=== PATIENT | male | born 1970 | race Caucasian/White ===

== ENCOUNTER 2016-05-08 05:36 | Outpatient (CLI) | payer OTHER ==
[~2016-05-08] VITALS: Ht 182.9 cm; Wt 106.1 kg
== END 2016-05-08 14:26 ==
LOC: PREOP 05:36
PROVIDERS: ATTEND Surgery
DX: Z01.818 Encounter for other preprocedural examination (principal); K21.9 Gastro-esophageal reflux disease without esophagitis; R19.7 Diarrhea, unspecified

== ENCOUNTER 2016-05-12 07:55 | Day surgery (SDC) | payer OTHER ==
[~2016-05-12] VITALS: Ht 182.9 cm; Wt 106.1 kg
--- OUTSIDE RECORDS SUMMARY | 2016-05-12 07:59 | XMS REPORT | Continuity of Care Document ---
Author Author [facility] Organization [facility] Address Unknown Phone Unavailable Support Name Relationship Address Phone MANDO UMANA MD Caregiver [address] [facility] [place] [address] Insurance Providers Payer Name Policy Number Subscriber Name Relationship [facility] [id number] JenniferLauren hoang 01 Advance Directives Directive Response Recorded Date/Time Advance Directives No 05/08/16 2:21pm Resuscitation Status Full Code 05/08/16 2:21pm Problems No problem information available. Medications No known medications. Social History Social History Problem Response Recorded Date/Time Alcohol Use Regular Use 05/08/2016 2:21pm Recreational Drug Use No 05/08/2016 2:21pm Recent Foreign Travel No 05/08/2016 2:24pm Recent Infectious Disease Exposure No 05/08/2016 2:24pm Smoking Status Never a Smoker 05/08/2016 2:21pm Recent Hopitalizations No 05/08/2016 2:21pm Query Response Start Date Stop Date Smoking Status Never a Smoker Hospital Discharge Instructions No hospital discharge instructions. Plan of Care Discharge Date 05/08/16 2:26pm Prescriptions See Medication Section Functional Status No functional status results. Allergies, Adverse Reactions, Alerts No known allergies. Immunizations No immunization records. Vital Signs Acute Vital Signs Vital Response Date/Time Height (Feet) 6 feet 05/08/2016 2:20pm Height (Inches) 0.00 inches 05/08/2016 2:20pm Height (Calculated Centimeters) 182.399034 cm 05/08/2016 2:20pm Weight (Pounds) 234 pounds 05/08/2016 2:20pm Weight (Ounces) 0.0 oz 05/08/2016 2:20pm Weight (Calculated Grams) 258859.62 gm 05/08/2016 2:20pm Weight (Calculated Kilograms) 106.574228 kilograms 05/08/2016 2:20pm Calculated BMI 31.7 05/08/2016 2:20pm Results No known relevant diagnostic tests, laboratory data and/or discharge summary. Procedures No known history of procedures. Encounters Encounter Location Arrival/Admit Date Discharge/Depart Date Attending Provider Registered Clinic [facility] 05/08/16 5:36am MANDO UMANA MD
--- OUTSIDE RECORDS SUMMARY | 2016-05-12 07:59 | XMS REPORT | Continuity of Care Document ---
Author Author [facility] Organization [facility] Address Unknown Phone Unavailable Support Name Relationship Address Phone MANDO UMANA MD Caregiver [address] [facility] [place] [address] [address] Insurance Providers Payer Name Policy Number Subscriber Name Relationship [facility] [place] [id number] JenniferLauren hoang 01 Advance Directives Directive Response [...] 0.00 inches 05/08/2016 2:20pm Height (Calculated Centimeters) 182.137061 cm 05/08/2016 2:20pm Weight (Pounds) 234 pounds 05/08/2016 2:20pm Weight (Ounces) 0.0 oz 05/08/2016 2:20pm Weight (Calculated Grams) 464239.62 gm 05/08/2016 2:20pm Weight (Calculated Kilograms) 106.313193 kilograms 05/08/2016 2:20pm Calculated BMI 31.7 05/08/2016 2:20pm Results No known relevant diagnostic tests, laboratory data and/or discharge summary. Procedures No known history of procedures. Encounters Encounter Location Arrival/Admit Date Discharge/Depart Date Attending Provider Registered Clinic [facility] 05/08/16 5:36am MANDO UMANA MD
[2016-05-12] MEDS ORDERED: NS IV 500 ML 500 ML ONE (08:01)
[2016-05-12] MEDS ORDERED: MULT-35 PO (08:28)
[2016-05-12] MEDS ORDERED: ASPI-586 PO (08:28)
[2016-05-12] MEDS ORDERED: OMG1KC PO (08:28)
[2016-05-12] MEDS ORDERED: ZINC50TA51 PO (08:28)
[2016-05-12] MEDS ORDERED: LANS15CA PO (08:28)
[2016-05-12] MEDS ORDERED: CETI10CA PO (08:28)
[2016-05-12] MEDS ORDERED: HURRICAINE EXT TUBE (BENZOCAINE) XX PRN (08:30)
[2016-05-12] MEDS ORDERED: NALOXONE 0.4 MG/ML 1 ML (NARCAN) VIAL IVP PRN (08:30)
[2016-05-12] MEDS ORDERED: NS IV 500 ML 500 ML IV PRN (08:30)
[2016-05-12] MEDS ORDERED: FLUMAZENIL (ROMAZICON) 0.1 MG/ML 5 ML VIAL INJ PRN (08:30)
[2016-05-12 08:35] VITALS: BP 141/91
[2016-05-12] MEDS ORDERED: MIDAZOLAM 2 MG/2 ML (VERSED) VIAL ONE ×4 (08:58)
[2016-05-12] MEDS: fentaNYL INJECTION 100 MCG/2 ML AMP IVP PRN ×4 (09:13→09:30)
--- NOTE | 2016-05-12 09:13 | Pre-Op Note & Conscious Sedat ---
Pre-Operative Progress Note H&P Reviewed The H&P was reviewed, patient examined and no changes noted. Date H&P Reviewed: May 12, 2016 Time H&P Reviewed: 09:12 Pre-Op Diagnosis: GERD. Rectal bleeding. Diarrhea. Family history of colon cancer Conscious Sedation Pre-Proced ASA Class: 2 Airway Mallampati Classification: ([place] appropriate class) I. II. III, IV Lungs Heart ASA score ASA 1: a normal healthy patient ASA 2: a patient with a mild systemic disease (mid diabetes, controlled hypertension, obesity ASA 3: a patient with a severe systemic disease that limits activity (angina , COPD, prior Myocardial infarction) ASA 4: a patient with an incapacitating disease that is a constant threat to life (CHF, renal failure) ASA 5: a moribund patient not expected to survive 24 hrs. (ruptured aneurysm) ASA 6: a declared brain patient whose organs are being harvested. For emergent operations, add the letter E after the classification Grade 1 Sedation Plan: Discussed options with patient/fam Note The patient is an appropriate candidate to undergo the planned procedure, sedation, and anesthesia. The patient immediately re-assessed prior to indication. MANDO UMANA MD May 12, 2016 9:13 am
[2016-05-12] MEDS: MIDAZOLAM 2 MG/2 ML (VERSED) VIAL IVP PRN ×4 (09:15→09:32)
--- NOTE | 2016-05-12 09:48 | Progress Note-Post Operative ---
Post-Operative Progess Note Pre-Operative Diagnosis GERD. Rectal bleeding. Diarrhea. Family history of colon cancer Post-Operative Diagnosis EGD: grade 1 esophagitis. Stomach and duodenum normal Colonoscopy: internal hemorrhoids. No polyps Post-Op Procedure Note Date of Procedure: May 12, 2016 Name of Procedure: EGD with antral biopsy Colonoscopy to cecum Anesthesia Type sedation Specimen(s) collected antral mucosa MANDO UMANA MD May 12, 2016 9:48 am
--- NOTE | 2016-05-12 09:49 | Discharge Inst-Simple/Standard ---
Discharge Inst-Standard Discharge Medications New, Converted or Re-Newed RX: Other Patient Instructions/Follow Up Plan of Care/Instructions/FU: to increase Prevacid twice a day. Screening colonoscopy in 5 years Activity as Tolerated: Yes Discharge Diet: No Restrictions MANDO UMANA MD May 12, 2016 9:49 am
[2016-05-12 09:55] VITALS: BP 98/62
[2016-05-12 10:25] VITALS: BP 123/93
[2016-05-12 10:46] VITALS: BP 123/93
--- NOTE | 2016-05-12 11:48 | OPERATIVE REPORT ---
PROCEDURE PHYSICIAN: MANDO UMANA DATE OF PROCEDURE: 05/12/2016 PROCEDURES: 1. Upper GI endoscopy with antral biopsy. 2. Colonoscopy. SURGEON: Dr. Umana. INDICATION FOR THE PROCEDURE: This gentleman came in for an endoscopic assessment of symptoms of reflux disease and for colonoscopy to evaluate rectal bleeding and diarrhea. In addition, he reported a family history of colon cancer in his paternal cousin (in her 30's). Informed consent was obtained after reviewing the procedures in detail. DESCRIPTION OF PROCEDURE: 1. Upper GI endoscopy with antral biopsy: He was placed in left lateral decubitus position and his vital signs were monitored. Conscious sedation was achieved using Versed and fentanyl. The flexible gastroscope was introduced down the esophagus, past the stomach, into the proximal duodenum. FINDINGS: ESOPHAGUS: Grade 1 esophagitis. STOMACH AND DUODENUM: Were normal. An antral biopsy was obtained for Helicobacter status. He tolerated the procedure well and was turned around in preparation for colonoscopy. IMPRESSION: 1. Symptoms of reflux disease. 2. Mild esophagitis. 3. Recommend twice a day proton pump inhibitor therapy at this point. 2. COLONOSCOPY: Examination of the perianal area revealed a 2 cm skin tag over the gluteal region. Rectal examination was otherwise unremarkable. The colonoscope was then introduced into the rectum and advanced all the way up to the cecum. It was then withdrawn slowly and the mucosa examined in a systematic fashion. FINDINGS: 1. Internal hemorrhoids, the source of his bleeding. 2. No polyps were found. He tolerated the procedure well and was taken back to the nursing area in a stable condition. IMPRESSION: 1. Diarrhea. 2. No abnormalities found on colonoscopy. 3. Positive family history. 4. No polyps. RECOMMENDATION: Recommend screening colonoscopy in 5 years. Job ID: [id number] Dictated Date: 05/12/2016 09:47:35 Manager Of Development Date: 05/12/2016 11:42:49 / tha [place]
== END 2016-05-12 10:46 | disposition home or self-care (01) ==
LOC: ENDO 07:55
PROVIDERS: ATTEND Surgery
DX: K64.8 Other hemorrhoids (principal); K21.0 Gastro-esophageal reflux disease with esophagitis; R19.7 Diarrhea, unspecified; Z80.0 Family history of malignant neoplasm of digestive organs
CPT/HCPCS: 88305

== ENCOUNTER 2017-01-21 10:00 | Observation (INO) | payer OTHER ==
[~2017-01-21] VITALS: Ht 182.9 cm; Wt 96.2 kg
[~2017-01-21 10:00] MED LIST: ASPI-586 PO; CETI10CA PO; LANS15CA PO; MULT-35 PO; OMG1KC PO; ZINC50TA51 PO
[2017-01-21] MEDS: methylPREDNISolone 125 MG (Solu-MEDROL) VIAL IV SCH ×2 (10:50→16:47)
[2017-01-21] MEDS: FAMOTIDINE 20MG/2ML IV (PEPCID) IV SCH ×2 (10:50→19:03)
[2017-01-21] MEDS: diphenhydrAMINE 50 MG/ML INJ (BENADRYL) IV SCH ×2 (10:50→16:47)
[2017-01-21 12:00] VITALS: BP 126/83
[2017-01-21] MEDS ORDERED: MV-M1TAB32 PO (15:37)
[2017-01-21] MEDS ORDERED: LANS15CA5 PO (15:37)
[2017-01-21] MEDS ORDERED: METH4TAB10 PO (15:37)
[2017-01-21] MEDS ORDERED: TR025C15 TOP (15:37)
[2017-01-21] MEDS ORDERED: CETI10TA17 PO (15:37)
[2017-01-21] MEDS ORDERED: LYSI500T PO (15:37)
[2017-01-21] MEDS ORDERED: [UNRECOGNIZED DRUG - OTHER] PO (15:37)
[2017-01-21 16:00] VITALS: BP 124/84
[2017-01-21] MEDS ORDERED: DIPH25TA65 PO (19:25)
[2017-01-21] MEDS ORDERED: PRD20T PO (19:25)
[2017-01-21] MEDS ORDERED: FAMO20TA45 PO (19:25)
--- NOTE | 2017-01-21 19:29 | Discharge Inst-Complex ---
PDI Med Rec & Follow Up Appt. New Medications: Diphenhydramine HCl (Benadryl Allergy) 25 Mg Tablet 50 MG PO QID for 7 Days, #90 TAB Famotidine (Pepcid AC) 20 Mg Tablet 20 MG PO BID for 14 Days, #30 TAB Prednisone (Prednisone) 20 Mg Tab 20 MG PO UD for 30 Days, #46 TAB 60mg bid x4day, 40mg bid x3day, 20mg bid x3days then 1/2 pill bid x3days then stop Continued Medications: Aspirin (Aspir 81) 81 Mg Tablet.dr 81 MG PO DAILY, TAB Cetirizine HCl (Cetirizine HCl) 10 Mg Tablet 20 MG PO DAILY, TAB TAKES 2 (10MG) TABLETS Lysine (l-Lysine) 500 Mg Tablet 500 MG PO DAILY, TAB Triamcinolone Acet (Triamcinolone Acetonide 0.025%) 15 Gm Cr TOP BID, EA Discontinued Medications: Lansoprazole (Lansoprazole) 15 Mg Capsule. 15 MG PO DAILY, CAP Methylprednisolone (Methylprednisolone) 4 Mg Tab.ds.pk PO UD 6 DAY SUPPLY FILLED 01-19-17 Multivitamin (Daily Multiple Vitamin) 1 Each Tablet 1 TAB PO DAILY, TAB Mv-Min/Vit C/Glut/Bridget AC/Hc124 (Airborne Tablet Chewable) 1 Each Tab.chew 1 TAB.CHEW PO DAILY, TAB Zinc Amino Acid Chelate (Zinc) 50 Mg Tablet 1 TAB PO DAILY, TAB [Zip Fiz] () PO DAILY B-12 POWDER YOU MIX WITH LIQUID AND DRINK Prescription: Transmitted to Pharmacy Activity, Diet and PDI Resume Normal Activity: Yes Drink 6-8 Glasses of Fluid/Day: Yes Driving Instructions: No Driving for 24 Hours Symptoms to Reoprt to : Fever Over 101 Degrees F, Pain/Pressure in Chest, Shortness of Breath For Problems or Questions: Contact Your Physician, Go to Emergency Room Infection Signs and Symptoms: Temperature Above 101 F MYLES JHA MD Jan 21, 2017 19:29
--- NOTE | 2017-01-21 19:36 | Short Stay Summary ---
History of Present Illness History of Present Illness Reason for visit/HPI Pt is a 46 y/o male who is known to me from the office. He presented to the office today with complaint of hives, a rash from his chest to his feet, sparing his neck and head. Pt states that he had been raking leaves this weekend, was out in the yard with his grand-daughter, and then shortly thereafter he started to have itching. Date of Admission Jan 21, 2017 at 10:07 Date of Discharge 01/21/17 Time Seen by Provider: 19:34 Attending Physician Myles Park MD Admitting Physician Myles Park MD Consult Allergies and Home Medications Allergies Coded Allergies: No Known Drug Allergies (Unverified , 05/08/16) Home Medications Aspirin 81 Mg Tablet.dr, 81 MG PO DAILY, (Reported) Cetirizine HCl 10 Mg Tablet, 20 MG PO DAILY, (Reported) TAKES 2 (10MG) TABLETS Diphenhydramine HCl 25 Mg Tablet, 50 MG PO QID for 7 Days, #90 Prescribed by: MYLES PARK on 01/21/171924 Famotidine 20 Mg Tablet, 20 MG PO BID for 14 Days, #30 Prescribed by: MYLES PARK on 01/21/17 192 Lysine 500 Mg Tablet, 500 MG PO DAILY, (Reported) Prednisone 20 Mg Tab, 20 MG PO UD for 30 Days, #46 60mg bid x4day, 40mg bid x3day, 20mg bid x3days then 1/2 pill bid x3days then stop Prescribed by: MYLES PARK on 01/21/171924 Triamcinolone Acet 15 Gm Cr, TOP BID, (Reported) Past Dwfthzw-Hzyirt-Mikcox Hx Patient Social History Marrital Status: Living Status: lives at home with spouse Employed/Student: employed Alcohol Use: Rarely Uses Number of Drinks Today: 0 Alcohol Beverage of Choice: Beer Recreational Drug Use: No Smoking Status: Never a Smoker Physical Abuse Screen: No Sexual Abuse: No Recent Foreign Travel: No Contact w/other who traveled: No Recent Hopitalizations: No Recent Infectious Disease Expo: No Immunizations Up To Date Tetanus Booster (TDap): Unknown Date of Influenza Vaccine: Jan 07, 2017 Seasonal Allergies Seasonal Allergies: Yes Surgeries Yes (BACK SX, KNEE SX, JAW SX) Respiratory Yes Currently Using CPAP: No Currently Using BIPAP: No Cardiovascular No Neurological No Genitourinary No Gastrointestinal Yes Gastroesophageal Reflux, Chronic Diarrhea Musculoskeletal Yes Arthritis, Chronic Back Pain Endocrine History of Endocrine Disorders: No HEENT History of HEENT Disorders: Yes HEENT Disorders: Tinnitis Loss of Vision: Denies Hearing Impairment: Denies Cancer No Psychosocial History of Psychiatric Problem: No Integumentary History of Skin or Integumenta: No Blood Transfusions History of Blood Disorders: No Family Medical History Significant Family History: Hypertension Constitutional: No chills, No fever, No malaise, No weakness EENTM: No hoarseness, No throat pain Respiratory: No cough, No dyspnea on exertion Cardiovascular: No chest pain, No palpitations Gastrointestinal: No abdominal pain, No constipation, No diarrhea Genitourinary: no symptoms reported Musculoskeletal: No back pain Skin: change in color, pruritus, rash Psychiatric/Neurological: Denies Anxiety, Denies Depressed Physical Exam Vital Signs Vital Sign - Last 12Hours 01/21/17 01/21/17 10:15 12:00 Temp 99.5 Pulse 86 Resp 20 B/P (MAP) 126/83 Pulse Ox 99 O2 Delivery Room Air Capillary Refill : NONE General Appearance: No Apparent Distress, WD/WN Eyes: Bilateral Eye Normal Inspection, Bilateral Eye PERRL, Bilateral Eye EOMI HEENT: PERRL/EOMI, Pharynx Normal Neck: Full Range of Motion, Supple Respiratory: Chest Non Tender, Lungs Clear, No Accessory Muscle Use Cardiovascular: Regular Rate, Rhythm, No Edema Gastrointestinal: Normal Bowel Sounds, Soft Rectal: Deferred Extremity: Normal Capillary Refill, Pedal Edema (around sites of hives and left knee) Neurologic/Psychiatric: Alert, Oriented x3, No Motor/Sensory Deficits, Normal Mood/Affect, grades 1 through 5 teacher II-XII Norm as Tested Skin: Rash (hives with a few petechial sites on arms/legs, hives spares neck and face and head.) Lymphatic: No Adenopathy Clinical Quality Measures DVT/VTE Risk/Contraindication: Risk Factor Score Per Nursin RFS Level Per Nursing on Admit: 1=Low/No VTE PPX Short Stay Diagnosis Discharge Diagnosis-Short Stay Admission Diagnosis: hives suspect oak mite bites with allergic reaction Final Discharge Diagnosis: hives suspect oak mite bites with allergic reaction Conclusion Conclusion/Plan hives suspect oak mite bites with allergic reaction rx for long steroid taper, benadryl, pepcid, pt and his have been advised of bid steroid and need to take steroid with food, call if abdominal pain occurs or rash worsens. pt to take benadryl 50mg qid x 7 days and pepcid bid x 7 days. MYLES PARK MD Jan 21, 2017 19:36
== END 2017-01-21 19:25 | disposition home or self-care (01) ==
LOC: 4TH 10:07 → UNDOADMOB 10:07 → 4TH 10:15 → UNDODISOB 19:57
PROVIDERS: ADMIT Family Medicine; ATTEND Family Medicine
DX: L50.0 Allergic urticaria (principal); Z79.82 Long term (current) use of aspirin; Z79.899 Other long term (current) drug therapy

== ENCOUNTER → 2019-07-15 | Outpatient (CLI) | payer OTHER ==
[~2019-07-15] MED LIST changes: +CETI10TA17 PO; +DIPH25TA65 PO; +FAMO20TA45 PO; +LANS15CA5 PO; +LYSI500T10 PO; +METH4TAB10 PO; +MV-M1TAB32 PO; +PRD20T PO; +TR025C15 TOP; +[UNRECOGNIZED DRUG - OTHER] PO
--- NOTE | 2019-07-15 11:05 | Diagnostic Imaging Report ---
Indication: Right knee pain 3 views of the right knee show no fracture, dislocation or other acute abnormalities. IMPRESSION: Negative right knee Dictated by: Dictated on workstation # [id number]
== END ==
LOC: RAD 10:11
PROVIDERS: ATTEND Nurse Practitioner Family
DX: M25.561 Pain in right knee (principal)
CPT/HCPCS: 73562

== ENCOUNTER → 2019-07-29 | Outpatient (CLI) | payer OTHER ==
--- NOTE | 2019-07-29 10:38 | Diagnostic Imaging Report ---
PROCEDURE: MRI right joint lower extremity without contrast. TECHNIQUE: Multiplanar, multisequence non contrast-enhanced MRI of the right lower extremity was accomplished. INDICATION: Knee pain COMPARISON: There are no prior MRI examinations available for comparison. The plain film examination of the right knee performed on 07/15/2019 failed to show an acute abnormality. On the proton density sagittal fat saturated series there is a small area of abnormal signal on the inferior articular surface of the posterior horn of the lateral meniscus. This would be consistent with a tear. There is also a more prominent area of abnormal signal involving the posterior horn of the medial meniscus and this portion of the meniscus is felt to be torn, as well. The anterior and posterior cruciate ligaments, the quadriceps and infrapatellar tendons, the collateral ligaments, the biceps femoris tendon and the iliotibial band are intact. There is no evidence for a tear of the medial or lateral retinaculum. In the intercondylar notch in the subcortical region there is a poorly defined 0.7 x 0.8 cm area of diminished signal on the proton dense series. This could be related to a small acute/subacute osteochondral injury. There is no abnormal signal arising from the osseous structures to suggest bone edema or a fracture otherwise. There is a small 0.8 x 0.8 cm rounded area of altered signal in the subarticular region of the proximal tibia just medial to midline. This is near the attachment of the anterior cruciate ligament. This finding is probably due to degenerative disease. There is moderate degenerative disease of the articular surface of the medial femoral condyle and mild degenerative disease of the articular surface of the lateral femoral condyle. The patellofemoral space is fairly well-maintained. There is a very small joint effusion present. There is no sign of a Williamson's cyst. There is also mild soft tissue edema along the anterior aspect of the patella. IMPRESSION: 1. Both menisci are torn with the medial meniscus the more severely injured of the two. 2. The major ligaments and tendons are intact. 3. There is a question of a small osteochondral injury to the subcortical region of the intercondylar notch of the distal femur.. There is no acute bony abnormality evident otherwise. 4. There is moderate degenerative disease of the medial compartment of the knee joint. . Dictated by: Dictated on workstation # [id number]
== END ==
LOC: RAD 08:56
PROVIDERS: ATTEND Nurse Practitioner Family
DX: S83.281A Other tear of lateral meniscus, current injury, right knee, initial encounter (principal); S83.242A Other tear of medial meniscus, current injury, left knee, initial encounter; M17.11 Unilateral primary osteoarthritis, right knee
CPT/HCPCS: 73721

== ENCOUNTER 2020-12-24 13:12 | Outpatient (CLI) | payer OTHER | END 2020-12-24 13:30 | LOC: SLEEP 13:12 | PROVIDERS: ATTEND Nurse Practitioner Family | DX: G47.10 Hypersomnia, unspecified (principal) | CPT/HCPCS: G0399 ==

== ENCOUNTER → 2022-04-18 | Outpatient (CLI) | payer OTHER ==
--- NOTE | 2022-04-18 17:11 | Diagnostic Imaging Report ---
INDICATION: Neck pain with radiation down the left shoulder COMPARISON: None FINDINGS: Frontal, lateral, and odontoid views of the cervical spine were submitted. The cervical spine is visualized up to the C7/T1 level on the lateral projection. There is normal vertebral height and alignment. There is no evidence of fracture or bone destruction. No prevertebral soft tissue swelling is seen. There are multilevel degenerative changes, greatest at the C5-C6 level where there is intervertebral disc height loss with anterior and posterior endplate osteophyte formations. The open-mouth view demonstrates normal C1/C2 alignment. IMPRESSION: 1. No acute fracture or dislocation cervical spine. 2. Moderate degenerative changes at the C5-C6 level. MRI may be of benefit for further assessment Dictated by: Dictated on workstation # [id number]
== END ==
LOC: RAD 11:26
PROVIDERS: ATTEND Nurse Practitioner Family
DX: M50.322 Other cervical disc degeneration at C5-C6 level (principal)
CPT/HCPCS: 72040